=== PATIENT | male | born 1980 | race Asian ===

== ENCOUNTER 2021-07-01 10:01 | Emergency (ER) | payer OTHER ==
[~2021-07-01] VITALS: Ht 170.2 cm; Wt 65.3 kg
--- NOTE | 2021-07-01 10:07 | NUR ---
Patient to ER bed 08 to gown for evaluation. Side rails up.
[2021-07-01 10:08] VITALS: BP_SYST 114
--- NOTE | 2021-07-01 10:30 | NUR ---
Dr. Benoit at bedside.
[2021-07-01 10:49] LABS: BASOPHILS % (AUTO) 0.6 % (0.0-2.0); EOSINOPHILS # (AUTO) 0.1 K/uL (0.0-0.4); EOSINOPHILS % (AUTO) 1.5 % (0.0-4.0); HEMATOCRIT 44.4 % (36-54); HEMOGLOBIN 15.1 g/dL (14.0-18.0); LYMPHOCYTES # (AUTO) 1.9 K/uL (1.0-5.5); LYMPHOCYTES % (AUTO) 32.2 % (20.5-51.5); MEAN CORPUSCULAR HEMOGLOBIN 32 pg (27-31); MEAN CORPUSCULAR HGB CONC 34 % (32-36); MEAN CORPUSCULAR VOLUME 93 fL (79.0-98.0); MONOCYTES # (AUTO) 0.5 K/uL (0.0-1.0); MONOCYTES % (AUTO) 7.7 % (1.7-9.3); NEUTROPHILS # (AUTO) 3.4 K/uL (1.8-7.7); PLATELET COUNT (AUTO) 218 K/uL (130-430); WHITE BLOOD COUNT (AUTO) 5.9 K/uL (4.8-10.8)
--- NOTE | 2021-07-01 10:52 | NUR ---
Pt is A&Ox4. Mother at bedside. Pt c/o abdomen pain in all quadrants. Denies n/v. No chest pain and no sob. Ambulatory with steady gait. VSS. Pt states he cannnot urinate at this time. Cup of water given to pt. Bed in lowest position and connected to quality assurance monitor.
[2021-07-01 11:01] LABS: CALCIUM 9.4 mg/dL (8.4-11.0); CREATININE 0.65 mg/dL (0.55-1.30); POTASSIUM 3.9 mmol/L (3.5-5.1)
[2021-07-01 11:07] LABS: ALBUMIN 4.1 g/dL (3.4-4.8); TOTAL BILIRUBIN 0.4 mg/dL (0.0-1.0)
--- NOTE | 2021-07-01 11:15 | NUR ---
Pt states he cannot urinate still. Another cup of water given to pt.
[2021-07-01 11:56] LABS: BILIRUBIN,URINE NEGATIVE (NEGATIVE); BLOOD, URINE NEGATIVE (NEGATIVE); COLOR,URINE YELLOW (YELLOW); GLUCOSE,URINE NEGATIVE (NEGATIVE); KETONES,URINE NEGATIVE (NEGATIVE); LEUKOCYTE ESTERASE ,URINE NEGATIVE (NEGATIVE); NITRITE, URINE NEGATIVE (NEGATIVE); PH,URINE 7.5 (5.0-8.0); PROTEIN URINE NEGATIVE (NEGATIVE); UROBILINOGEN,URINE 0.2 (0.2-1.0)
[2021-07-01 12:01] LABS: CLARITY/URINE SLIGHTLY HAZY (CLEAR)
--- NOTE | 2021-07-01 12:14 | NUR ---
Pt moved to bed 04
[2021-07-01] MEDS ORDERED: OMEP20CA15 PO (12:26)
[2021-07-01 12:41] VITALS: BP_SYST 124
--- NOTE | 2021-07-01 12:42 | NUR ---
Patient given written and verbal discharge instructions and verbalizes understanding. ER MD discussed with patient the results and treatment provided. Patient in stable condition. ID arm band removed. Rx of Omezprazole given. Patient educated on pain management and to follow up with PMD. Pain Scale . Opportunity for questions provided and answered. Medication side effect fact sheet provided.
== END 2021-07-01 12:42 | disposition home or self-care (01) ==
LOC: SED 10:01
DX: R10.10 Upper abdominal pain, unspecified (principal); Z79.899 Other long term (current) drug therapy
CPT/HCPCS: 36415; 80053; 81003; 83690; 85025; 99283